=== PATIENT | female | born 1990 | race American Indian/Alaskan Native ===

== ENCOUNTER 2022-08-03 08:25 | Emergency (ER) | payer OTHER ==
[2022-08-03] MEDS ORDERED: oxyCODONE /ACETAMINOPHEN 5-325MG TAB PO ONE (12:22)
[2022-08-03] MEDS ORDERED: TETANUS,DIPH,PERTUSS(ACELL) VACCINE 0.5 ML SYRINGE IM ONE (12:22)
[2022-08-03] MEDS ORDERED: KETOROLAC 10 MG TAB PO ONE (12:22)
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
[2022-08-03 14:43] VITALS: BP 132/80
== END 2022-08-03 14:30 | disposition home or self-care (01) ==
LOC: ED 08:25
DX: S00.83XA Contusion of other part of head, initial encounter (principal); Z79.899 Other long term (current) drug therapy; V87.7XXA Person injured in collision between other specified motor vehicles (traffic), initial encounter; Y93.89 Activity, other specified; Y92.488 Other paved roadways as the place of occurrence of the external cause; Y99.8 Other external cause status
CPT/HCPCS: 70486; 90471; 90715; 99283